=== PATIENT | male | born 1990 | race Caucasian/White ===

== ENCOUNTER 2017-07-11 22:51 | Emergency (ER) | payer SELFPAY ==
[2017-07-12 00:55] VITALS: BP 138/87; PULSE 72; TEMP 97.6; BMI 30.9
[2017-07-12] MEDS ORDERED: IBUPROFEN 600 MG TABLET (FP) PO ONE ×2 (01:59→02:19)
--- NOTE | 2017-07-12 02:05 | PDOC ---
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 Patient states symptoms worse today. He denies fever, CP, Abd pain, n/v/d, cough, dizziness, dysuria, hematuria, or any other complaints at this time. Denies Smoking or Drug use. No PCP. Timing/Duration: reports: week. denies: just prior to arrival, other, constant , changing over time, getting worse, gone now, intermittent, yesterday, this afternoon, this evening, this morning Severity: reports: moderate. denies: mild, severe Episode Description: See HPI Possible Cause: No: no prior episodes, other, allergen exposure, chronic episodes, frequent episodes, illness exposure, irritant gases exposure, occasional episodes, smoke exposure, unknown cause Modifying Factors: worse with: activity, albuterol inhaler, albuterol nebulizer , antibiotics, coughing, lying down, oxygen, rest, other Associated Symptoms: denies: denies symptoms, chest pain/soreness, cough, dizziness, earache, facial pain, fever/chills, headache, lightheadedness, muscle aches, nasal congestion, nasal drainage, shortness of breath, sinus infection, sore throat, wheezing, other Past History - Travel Traveled outside of the country in the last 30 days: No Close contact w/someone who was outside of country & ill: No - Past Medical History Allergies/Adverse Reactions: Allergies Allergy/AdvReac Type Severity Reaction Status Date / Time No Known Allergies Allergy Verified 07/12/17 00:47 Home Medications: Ambulatory Orders Ibuprofen 800 mg PO Q8H PRN #30 tablet 07/12/17 Methocarbamol [Robaxin -] 750 mg PO Q8H PRN #30 tablet 07/12/17 - Suicide/Smoking/Psychosocial Hx Smoking History: Never smoked Have you smoked in the past 12 months: No Information on smoking cessation initiated: No Hx Alcohol Use: No Drug/Substance Use Hx: No Respiratory Specific PMHX - Complaint Specific PMHX Angina: No Bronchitis: No Pneumonia: No Pulmonary Embolus: No TB (Tuberculosis): No Review of Systems - Review of Systems Able to Perform ROS?: Yes Is the patient limited Niuean proficient: No Constitutional: No: Fever Respiratory: Yes: Shortness of Breath. No: Cough Cardiac (ROS): No: Chest Pain ABD/GI: No: Diarrhea, Nausea, Vomiting, Abdominal cramping : No: Burning, Dysuria, Hematuria Musculoskeletal: Yes: Back Pain All Other Systems: Reviewed and Negative *Physical Exam - Vital Signs Last Vital Signs Temp Pulse Resp BP Pulse Ox 97.6 F 72 14 138/87 99 07/12/17 00:48 07/12/17 00:48 07/12/17 00:48 07/12/17 00:48 07/12/17 00:48 - Physical Exam General Appearance: Yes: Nourished, Appropriately Dressed. No: Apparent Distress, Mild Distress, Moderate Distress, Severe Distress HEENT: positive: EOMI, RUBENS, Normal ENT Inspection, Normal Voice, Symmetrical, TMs Normal, Pharynx Normal. negative: Pharyngeal Erythema, Tonsillar Exudate, Tonsillar Erythema, Nasal Congestion, Rhinorrhea, Sinus Tenderness, Orbits, TM Bulging, TM Dull, TM Erythema Neck: positive: Trachea midline, Normal Thyroid, Supple. negative: Tender, Rigid, Stridor, Lymphadenopathy (R), Lymphadenopathy (L), Tender lateral, Tender midline Respiratory/Chest: positive: Lungs Clear, Normal Breath Sounds. negative: Chest Tender, Respiratory Distress, Accessory Muscle Use, Labored Respiration, Rapid RR, Decreased Breath Sounds, Paradoxal Breathing, Crackles, Rhonchi, Stridor, Wheezing Cardiovascular: positive: Regular Rhythm, Regular Rate Gastrointestinal/Abdominal: positive: Soft, Increased Bowel Sounds. negative: Normal Bowel Sounds, Protuberent, Distended, Guarding, Rebound, Tenderness Musculoskeletal: positive: Normal Inspection. negative: CVA Tenderness Extremity: positive: Normal Capillary Refill, Normal Inspection, Normal Range of Motion, Pelvis Stable. 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 NML intact, Fully Oriented, Alert, Normal Mood/ Affect, Normal Response, Motor Strength 5/5 ED Treatment Course - LABORATORY CBC & Chemistry Diagram: 07/12/17 02:13 07/12/17 02:13 - RADIOLOGY Radiology Studies Ordered: Category Date Time Status CHEST PA & LAT [RAD] Stat Radiology 07/12/17 01:59 Ordered *DC/Admit/Observation/Transfer Diagnosis at time of Disposition: Anxiety about health Back pain Qualifiers: Back pain location: thoracic back pain Chronicity: acute Back pain laterality: bilateral Qualified Code(s): M54.6 - Pain in thoracic spine - Discharge Dispostion Disposition: HOME Condition at time of disposition: Stable Admit: No - Prescriptions Prescriptions: Ibuprofen 800 mg PO Q8H PRN #30 tablet PRN Reason: Back Pain Methocarbamol [Robaxin -] 750 mg PO Q8H PRN #30 tablet PRN Reason: Back Pain - Referrals Referrals: Clovis Jacobson MD [Staff Physician] - - Patient Instructions Printed Discharge Instructions: DI for Musculoskeletal Pain Additional Instructions: Jo Ann un seguimiento con el Dr. Jacobson (medicina interna) esta semana para briana evaluacin adicional. [place] los medicamentos segn lo recetado. No tome alcohol ni conduzca mientras janak Robaxin. Pruebe la compresa caliente en el alis afectada segn sea necesario. Junaid duchas calientes Vuelva si los sntomas empeoran o cualquier preocupacin para briana evaluacin adicional. Follow up with Dr. Jacobson (Internal medicine) this week for further evaluation. Take medications as prescribed. Dont drink alcohol, or drive while taking Robaxin. Try warm compress to affected area as needed. Take warm showers. Return if symptoms worsen or any concerns for further evaluation. Print Language: CZECH - Post Discharge Activity Forms/Work/School Notes: Back to Work
[2017-07-12 02:23] LABS: PH,URINE 5.5 (5.0-8.0); URINE APPEARANCE CLEAR; URINE BILIRUBIN NEGATIVE (NEGATIVE); URINE BLOOD NEGATIVE (NEGATIVE); URINE COLOR YELLOW; URINE GLUCOSE (UA) NEGATIVE (NEGATIVE); URINE KETONE NEGATIVE (NEGATIVE); URINE NITRITE NEGATIVE (NEGATIVE); URINE PROTEIN NEGATIVE (NEGATIVE); URINE UROBILINOGEN 0.2 mg/dL (0.2-1.0)
[2017-07-12 02:26] LABS: BASOPHIL 0.5 % (0-2.0); EOSINOPHIL 0.9 % (0-4.5); MCH 30.3 pg (25.7-33.7); MCHC 34.7 g/dl (32.0-35.9); MEAN CELL VOLUME 87.4 fl (80-96); MEAN PLT VOLUME 8.5 fl (7.5-11.1); NEUTROPHILS 72.3 % (42.8-82.8); PLATELET COUNT 272 K/MM3 (134-434); RDW 12.3 % (11.9-15.9); WHITE BLOOD COUNT 12.8 K/mm3 (4.0-10.0)
[2017-07-12 02:37] LABS: URINE MARIJUANA THC NEGATIVE ng/ml (CUTOFF=50)
[2017-07-12 02:58] LABS: ALBUMIN 3.9 g/dl (3.4-5.0); ANION GAP 9 (8-16); BILIRUBIN,TOTAL 0.2 mg/dL (0.2-1.0); CALCIUM 9.2 mg/dL (8.5-10.1); CO2 28 mmol/L (21-32); CREATININE 0.7 mg/dL (0.7-1.3); GLUCOSE,RANDOM 104 mg/dL (74-106); SGOT/AST 15 U/L (15-37); SGPT/ALT 31 U/L (12-78); TOT PROT 7.4 g/dl (6.4-8.2)
[2017-07-12 03:00] LABS: ALK PHOS 96 U/L (45-117); TROPONIN I < 0.02 ng/ml (0.00-0.05)
--- NOTE | 2017-07-12 03:10 | PDOC ---
*Physical Exam - Vital Signs Last Vital Signs Temp Pulse Resp BP Pulse Ox 97.6 F 72 14 138/87 99 07/12/17 00:48 07/12/17 00:48 07/12/17 00:48 07/12/17 00:48 07/12/17 00:48 ED Treatment Course - LABORATORY CBC & Chemistry Diagram: 07/12/17 02:13 07/12/17 02:13 - ADDITIONAL ORDERS Additional order review: Laboratory Results 07/12/17 07/12/17 07/12/17 02:13 02:13 02:13 D-Dimer Sodium 140 Potassium 4.2 Chloride 103 Carbon Dioxide 28 Anion Gap 9 BUN 20 H Creatinine 0.7 Creat Clearance w eGFR > 60 Random Glucose 104 Calcium 9.2 Total Bilirubin 0.2 AST 15 ALT 31 Alkaline Phosphatase 96 Troponin I < 0.02 Total Protein 7.4 Albumin 3.9 Urine Color Yellow Urine Appearance Clear Urine pH 5.5 Ur Specific [place] >= 1.030 Urine Protein Negative Urine Glucose (UA) Negative Urine Ketones Negative Urine Blood Negative Urine Nitrite Negative Urine Bilirubin Negative Urine Urobilinogen 0.2 Opiates Screen Negative Methadone Screen Negative Barbiturate Screen Negative Phencyclidine Screen Negative Ur Amphetamines Screen Negative MDMA (Ecstasy) Screen Negative Benzodiazepines Screen Negative Cocaine Screen Negative U Marijuana (THC) Screen Negative 07/12/17 02:13 D-Dimer < 200 Sodium Potassium Chloride Carbon Dioxide Anion Gap BUN Creatinine Creat Clearance w eGFR Random Glucose Calcium Total Bilirubin AST ALT Alkaline Phosphatase Troponin I Total Protein Albumin Urine Color Urine Appearance Urine pH Ur Specific [place] Urine Protein Urine Glucose (UA) Urine Ketones Urine Blood Urine Nitrite Urine Bilirubin Urine Urobilinogen Opiates Screen Methadone Screen Barbiturate Screen Phencyclidine Screen Ur Amphetamines Screen MDMA (Ecstasy) Screen Benzodiazepines Screen Cocaine Screen U Marijuana (THC) Screen 07/12/17 02:13 RBC 4.78 MCV 87.4 MCHC 34.7 RDW 12.3 MPV 8.5 Neutrophils % 72.3 Lymphocytes % 19.4 Monocytes % 6.9 Eosinophils % 0.9 Basophils % 0.5 - Medications Given in the ED: ED Medications Discontinued Medications Generic Name Dose Route Start Last Admin Trade Name Freq PRN Reason Stop Dose Admin Ibuprofen 600 mg 07/12/17 01:59 07/12/17 02:16 Motrin - PO 07/12/17 02:00 600 mg ONCE ONE Administration Medical Decision Making - Medical Decision Making 07/12/17 03:10 agree with care from ROLANDO Valencia *DC/Admit/Observation/Transfer Diagnosis at time of Disposition: Back pain, Anxiety about health - Discharge Dispostion Disposition: HOME Condition at time of disposition: Stable - Prescriptions Prescriptions: Ibuprofen 800 mg PO Q8H PRN #30 tablet PRN Reason: Back Pain Methocarbamol [Robaxin -] 750 mg PO Q8H PRN #30 tablet PRN Reason: Back Pain - Referrals Referrals: Clovis Jacobson MD [Staff Physician] - - Patient Instructions Printed Discharge Instructions: DI for Musculoskeletal Pain Additional Instructions: Jo Ann un seguimiento con el Dr. Jacobson (medicina interna) esta semana para briana evaluacin adicional. [place] los medicamentos segn lo recetado. No tome alcohol ni conduzca mientras janak Robaxin. Pruebe la compresa caliente en el alis afectada segn sea necesario. Junaid duchas calientes Vuelva si los sntomas empeoran o cualquier preocupacin para briana evaluacin adicional. Follow up with Dr. Jacobson (Internal medicine) this week for further evaluation. Take medications as prescribed. Dont drink alcohol, or drive while taking Robaxin. Try warm compress to affected area as needed. Take warm showers. Return if symptoms worsen or any concerns for further evaluation. Print Language: UZBEK - Post Discharge Activity Forms/Work/School Notes: Back to Work
[2017-07-12 09:05] LABS: URINE LEUK ESTERASE Negative (NEGATIVE)
--- NOTE | 2017-07-12 12:52 | EKG ---
Test Reason : Blood Pressure : / mmHG Vent. Rate : 068 BPM Atrial Rate : 068 BPM P-R Int : 162 ms QRS Dur : 094 ms QT Int : 364 ms P-R-T Axes : 057 079 054 degrees QTc Int : 387 ms NORMAL SINUS RHYTHM NORMAL ECG NO PREVIOUS ECGS AVAILABLE Confirmed by ISSAC CHILD, TONIE ([id number]) on 07/12/2017 12:52:32 PM Referred By: Confirmed By:TONIE DAVENPORT MD
== END 2017-07-12 03:34 | disposition home or self-care (01) ==
LOC: JER 22:51
DX: M54.6 Pain in thoracic spine (principal); F06.4 Anxiety disorder due to known physiological condition
CPT/HCPCS: 36415; 71020-TC; 80053; 80307; 81003; 84484; 85025; 85379; 93005; 93010; 99281-25

== ENCOUNTER 2018-11-21 23:02 | Emergency (ER) | payer SELFPAY ==
[2018-11-21 23:08] VITALS: BP 116/77; PULSE 91; TEMP 98.2; BMI 27.4
--- NOTE | 2018-11-22 01:31 | PDOC ---
History of Present Illness - General Chief Complaint: Chronic pain Stated Complaint: PAIN Time Seen by Provider: 11/22/18 00:51 History Source: Patient Exam Limitations: No Limitations Past History - Past Medical History Allergies/Adverse Reactions: Allergies Allergy/AdvReac Type Severity Reaction Status Date / Time No Known Allergies Allergy Verified 11/21/18 23:09 Home Medications: Ambulatory Orders Ibuprofen 800 mg PO Q8H PRN #30 tablet 07/12/17 Methocarbamol [Robaxin -] 750 mg PO Q8H PRN #30 tablet 07/12/17 COPD: No - Suicide/Smoking/Psychosocial Hx Smoking History: Never smoked Have you smoked in the past 12 months: No Hx Alcohol Use: No Drug/Substance Use Hx: No *Physical Exam - Vital Signs Last Vital Signs Temp Pulse Resp BP Pulse Ox 98.2 F 91 H 18 116/77 98 11/21/18 23:05 11/21/18 23:05 11/21/18 23:05 11/21/18 23:05 11/21/18 23:05 - Physical Exam General Appearance: No: Apparent Distress Respiratory/Chest: positive: Lungs Clear, Normal Breath Sounds. negative: Respiratory Distress Cardiovascular: positive: Regular Rhythm, Regular Rate, S1, S2. negative: Murmur Vascular Pulses: Dorsalis-Pedis (R): 2+, Doralis-Pedis (L): 2+ Gastrointestinal/Abdominal: positive: Normal Bowel Sounds, Soft. negative: Tender, Distended, Guarding, Rebound Musculoskeletal: negative: CVA Tenderness Extremity: positive: Normal Capillary Refill, Normal Inspection. negative: Pedal Edema, Swelling, Calf Tenderness Integumentary: positive: Normal Color Neurologic: positive: Alert, Normal Mood/Affect ED Treatment Course - RADIOLOGY Radiology Studies Ordered: Category Date Time Status CHEST PA & LAT [RAD] Stat Radiology 11/22/18 01:12 Ordered Medical Decision Making - Medical Decision Making 28 y/o M with no sig pmh presents with B/L leg pain, lower abdominal pain, back pain and pain across chest x 1 week. Also mentions having occasional chills. Mentions chest discomfort feels like tightness and is worse with inspiration. Denies fever, rhinorrhea, congestion, throat pain, n/v/d, urinary complaints. Was seen in 06/2017 for similar complaint; at that time, work up was negative and patient was discharged on Motrin and Robaxin. Per patient, unable to recall much but states may have helped a little. Denies smoking, alcohol or drug use. Denies recent surgeries or recent travel Likely MSK pain PE unremarkable PERC negative; unlikely PE with no risk factors Plan: CXR 11/22/18 01:27 CXR wet read negative Patient with no PCP currently Will refer to primary care center; card was given to patient 11/22/18 02:45 *DC/Admit/Observation/Transfer Diagnosis at time of Disposition: Chest pain Qualifiers: Chest pain type: chest pain on breathing Qualified Code(s): R07.1 - Chest pain on breathing; R07.81 - Pleurodynia - Discharge Dispostion Disposition: HOME Condition at time of disposition: Stable Decision to Admit order: No - Referrals Referrals: Joey Son MD [Staff Physician] - 2 Days - Patient Instructions Printed Discharge Instructions: DI for Chest Pain Additional Instructions: Thank you for choosing [facility]. It was a pleasure taking care of you. Your chest xray was normal Likely your pain could be musculoskeletal in nature You were referred to primary care center for further evaluation Return to the Emergency Department if your symptoms worsen or persist or have other concerning symptoms. - Post Discharge Activity
== END 2018-11-22 03:24 | disposition home or self-care (01) ==
LOC: JER 23:02
DX: R07.1 Chest pain on breathing (principal); R07.81 Pleurodynia
CPT/HCPCS: 71046-TC-FY; 99281-25